=== PATIENT | female | born 2005 | race Caucasian/White ===

== ENCOUNTER 2025-01-10 02:52 | Emergency (ER) | payer BC, SELFPAY ==
[2025-01-10 02:59] VITALS: BP 145/94; PULSE 122; RESP 20; TEMP 36.8; O2SAT 99; BMI 27.8
--- NOTE | 2025-01-10 03:05 | CRLHL7_ITS ---
For Patients: As a result of the Cures Act, medical imaging exams and procedure reports are released immediately into your electronic medical record. You may view this report before your referring provider. If you have questions, please contact your health care provider. Indication: Left-sided chest pain Technique: Two views of the chest Comparison: None Findings/Impression: Asymmetric patchy density in the left lung base, could represent a small or early consolidation. Round density projecting over the anterior midline upper abdomen most likely represents an ingested pills/tablet but can be correlated with history of recent ingestion. Dictated by Armand De La Torre MD @ 01/10/2025 3:23:35 AM (Electronically Signed)
--- NOTE | 2025-01-10 03:06 | ED.CHESTPAIN ---
HPI - Chest Pain General Date Seen: 01/10/25 Chief Complaint: Chest Pain Stated Complaint: Left Chest/Arm Pain, Difficulty breathing Time Seen by Provider: 01/10/25 02:58 Source: patient Mode of arrival: ambulatory Limitations: no limitations History of Present Illness HPI narrative: Patient is a 19-year-old female presenting for left-sided chest pain and some shortness of breath. She states she suffers from anxiety was having anxiety around 22:30. She is not getting better so she decided to take a we gumming which did not seem to help either. She was been trying go to bed without any improvement in her symptoms then she started having left shoulder pain. She states it is a discomfort in her shoulder that she can not really describe it seems to go into her left upper chest. Does not have any changes in symptoms with deep breaths. Has not had symptoms like this before. Denies any history of blood clots, recent travel, hormone use, lower extremity swelling, hemoptysis. No family history of sudden in a young age. Does admit to feeling very anxious right now and does admit that this could be a panic attack. She is prone to panic attack she states. Has not had any fevers, chills, headache, lightheadedness, dizziness, abdominal pain, diarrhea, constipation, weakness, numbness. Related Data Home Medications ?Medication ?Instructions ?Recorded ?Confirmed dexmethylphenidate 10 mg 10 mg PO DAILY 01/10/25 01/10/25 capsule,extended release [id number] dexmethylphenidate 10 mg tablet 10 mg PO DAILY 01/10/25 01/10/25 Allergies Allergy/AdvReac Type Severity Reaction Status Date / Time No Known Drug Allergies Allergy Verified 01/10/25 03:02 Review of Systems Status of ROS Reports: 10 or more systems reviewed and unremarkable except as noted in History and below [facility] Medical History (Updated 01/10/25 @ 03:34 by Jose Amado DO) ADHD ?F90.9 - Attention-deficit hyperactivity disorder, unspecified type (ICD-10) Surgical History No significant past surgical history Social History Smoking Status: Never smoker Second hand tobacco smoke exposure: No How often do you have a drink containing alcohol: never AUDIT-C Alcohol total score: 0 Non-prescribed substance use: denies use Exam Narrative Exam Narrative: Const: Well-nourished, Well-developed, in mild distress, appears very anxious Eyes: PERRL, no conjunctival injection, and symmetrical lids HENT: Atraumatic external nose and ears. Moist mucous membranes. Neck: Symmetric, trachea midline, No thyromegaly. CVS: RRR, No murmurs or gallops. Peripheral pulses 2+ and equal in all extremities RESP: Unlabored respiratory effort. Clear to auscultation bilaterally. GI: Nontender/Nondistended, No rebound or guarding. MSK:Extremities w/o deformity, Normal Active ROM Skin: Warm, Dry. No rashes or lesions. Neuro: Normal Muscle tone, No focal neurological deficits. Psych: Awake, Alert, & Oriented x3. Appropriate mood and affect. Const Vital Signs, click to edit/add: Vital Signs - 24 hr 01/10/25 02:59 01/10/25 03:17 Temperature 98.2 F 98.2 F Pulse Rate 89 Pulse Rate [Right Pulse Oximeter] 122 H Respiratory Rate 20 16 Blood Pressure 130/80 Blood Pressure [Right Upper Arm] 145/94 H Pulse Oximetry 99 98 Oxygen Delivery Method Room Air Course Vital Signs Vital signs: Initial Vital Signs Respiratory Effort Normal, Spontaneous, Non-Labored 01/10/25 02:52 Respiratory Depth Normal 01/10/25 02:52 Respiratory Pattern Normal 01/10/25 02:52 Vital Signs Temperature 98.2 F 01/10/25 02:59 Pulse Rate 122 H 01/10/25 02:59 Respiratory Rate 20 01/10/25 02:59 Blood Pressure 145/94 H 01/10/25 02:59 Pulse Oximetry 99 01/10/25 02:59 Oxygen Delivery Method Room Air 01/10/25 02:59 Temperature 98.2 F 01/10/25 03:17 Pulse Rate 89 01/10/25 03:17 Respiratory Rate 16 01/10/25 03:17 Blood Pressure 130/80 01/10/25 03:17 Pulse Oximetry 98 01/10/25 03:17 Oxygen Delivery Method Room Air 01/10/25 02:59 Medications Administered Medications: Generic Name Dose Route Start Last Admin Trade Name Freq PRN Reason Stop Dose Admin Lorazepam 0.5 mg 01/10/25 03:06 01/10/25 03:10 Lorazepam 0.5 Mg Tablet PO 01/10/25 03:07 0.5 mg ONCE ONE Administration MDM - Chest Pain MDM Narrative Medical decision making narrative: Patient is a 19-year-old female presenting for concerns of chest pain and shortness of breath. Although this does seem like it is mostly is some vague shoulder discomfort. The differential diagnosis of chest pain and shortness of breath is broad and includes common etiologies such as musculoskeletal strain, GERD, pneumonia, etc. More serious etiologies considered include PE, coronary artery disease, pneumothorax, aortic dissection, aortic aneurysm. My concern for PE, aortic dissection, aortic aneurysm is very low. Her symptoms do not seem consistent with those at all. I believe her shortness of breath and chest pain is most likely associated with her anxiety. Will do an EKG and troponin. Will give her some Ativan. She did seem to calm down quite a bit and I told her is very unlikely she is having a heart attack. Chest x-ray ordered of or other abnormalities. EKG and troponin showed no concerning signs. Do not believe repeat troponin is necessary this may concerned for ACS is extremely low. Her heart rate improved significantly after the Ativan. She is still anxious though at this time she states. Does state the Ativan helped a little bit. Chest x-ray showed some patchy density in left lung base that could be a pneumonia but her symptoms in the left upper chest and shoulder in this seems unlikely. There is a dense is a over the midline upper abdomen the radiology thinks represents an ingested pillar template. She did just take some Ativan. Overall at this time I believe she is safe for discharge. Lab Data Labs: Lab Results 01/10/25 Range/Units 03:10 POC Troponin I 0.01 (0.01-0.04) ng/ml Imaging Data Chest x-ray: Attestation: I have reviewed the pertinent imaging results. Radiologist's impression: Asymmetric patchy density in the left lung base, could represent a small or early consolidation. Round density projecting over the anterior midline upper abdomen most likely represents an ingested pills/tablet but can be correlated with history of recent ingestion. Dictated by Armand De La Torre MD @ 01/10/2025 3:23:35 AM ECG Data Attestation: I personally reviewed and interpreted this ECG as follows: Prior ECG tracings: not available for review Interpretation: Sinus tachycardia with a rate 118 beats per minute, normal intervals, normal axis, no ST or T-wave abnormalities. Discharge Plan Discharge Clinical Impression: Atypical chest pain, Anxiety Patient Disposition: Home, Self-Care Condition: Stable Instructions: Noncardiac Chest Pain (ED) Additional Instructions: I do not believe there is any issues with the heart at this time. I do think along the symptoms are related to her anxiety. There was a slight abnormality seen left lower lung base like could possibly be a sign of pneumonia but considering your symptoms are in the upper chest and shoulder this seems unlikely to be pneumonia or the cause of your symptoms. If symptoms do seem to be not improving over the next few days follow-up with the primary care provider or urgent care for re-evaluation. Return to emergency department for new worsening symptoms Prescriptions: No Action No Known Home Medications Follow Up/Referrals: Provider,Not a Local [Primary Care Provider] - Stand Alone Forms: [employer] Info Instructions
[2025-01-10] MEDS: LORazepam 0.5 MG TABLET PO (03:10)
--- OUTSIDE RECORDS SUMMARY | 2025-01-10 03:14 | XMS_ITS | Clinical Summary ---
Author Organization [facility] [facility] Address [address] [place] [id number] Care Team Providers Care Sign Painter Helper Name Role Phone Vincent Talavera MD Primary Care Provider [phone] Allergies Active Allergy Reactions Criticality Noted Date Comments Tree Nut Anaphylaxis 07/29/2014 Cashews Peanut Anaphylaxis 06/10/2005 Shellfish Containing Products 2007 Medications ALBUTEROL SULFATE HFA 90 MCG/ACTUATION AEROSOL INHALER 2 inhalations every 4 hours PRN cough or wheeze 2 0 9 Active tacrolimus 0.03% (PROTOPIC) 0.03 % ointment Apply topically to affected area(s) 2 times daily. 1 Tube 0 0 Active EPINEPHrine (EPIPEN JR) 0.15 mg/0.3 mL injectionIndic ations:Allergy to peanuts Inject 0.15 mg intramuscular one time if needed for Allergic Reaction. Please distribute 2 at a time 0.3 mL 0 2 Active albuterol HFA (PROAIR HFA) 90 mcg/actuation inhaler Inhale 2 Puffs by mouth every 4 hours if needed for Wheezing (cough). One for school and one for home 2 Inhaler 0 4 Active beclomethasone , 80 mcg each actuation, (QVAR) 80 mcg/actuation inhaler Inhale 2 Puffs by mouth 2 times daily. 1 Inhaler 2 4 Active EPINEPHrine (EPIPEN 2-MICHELLE) 0.3 mg/0.3 mL (1:1,000) injection Inject 0.3 mg intramuscular one time if needed for Allergic Reaction. One foe school and one for home 2 Each 0 4 Active fluticasone (50 mcg per actuation) nasal solution (FLONASE)Indic ations:Acute non-recurrent maxillary sinusitis Inhale 2 Sprays to both nostrils once daily. 16 g 4 Active Active Problems Problem Noted Date Diagnosed Date Contact dermatitis and other eczema, due to unspecified cause 02/04/2012 Mild intermittent asthma 04/09/2009 Allergy to peanuts 05/20/2005 Immunizations Immunization Administration Dates Next Due AMB Influenza, IIV3 (Age >=3 years)(Flu Clinic Only) 07/25/2008 AMB Influenza, IIV4 PF (=>6 mos Flulaval,Fluzone Fluarix)(Flu Clinic Only) 07/18/2014,06/19/2013 DTaP 05/20/2005 [id number] (Pediarix) 2004,2004,0 2004 DTaP-IPV (Kinrix) 02/14/2009 HIB PRP-OMP (PedvaxHIB) 05/20/2005,2004, Hepatitis A (Peds) 02/11/2011,03/11/2010 Influenza, IIV3 (Age 6-35 mos) 08/11/2006,2004,2004 Influenza, IIV3 (Age >=3 years) 07/18/2007 MMR 02/14/2009,02/12/2005 Pneumococcal conj 7-Valent ( Prevnar 7) 05/20/2005,2004,2004,2003 Varicella Vaccine 02/14/2009,02/12/2005 Family History Medical History Relation Name Comments Diabetes Other GRANDPARENT Relation Name Status Comments Father Stephon Mother Liseth Other Sister 1 Charlene Sister 2 Fanny Social History Tobacco Use Types Packs/Day Years Used Date Smoking Tobacco: Never Alcohol Use Standard Drinks/Week Comments Not Asked 0 (1 standard drink = 0.6 oz pur e alcohol) Comments Unknown Sex and Gender Information Value Date Recorded Sex Assigned at Not on file 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 Gender Identity Not on file Sexual Orientation Not on file Obstetrics History Last Filed Vital Signs Vital Sign Reading Time Taken Comments Blood Pressure 118/77 03/13/2024 6:02 PM CDT Pulse 106 03/13/2024 6:02 PM CDT Temperature 36.2 C (97.1 F) 03/13/2024 6:02 PM CDT Respiratory Rate 20 03/13/2024 6:02 PM CDT Oxygen Saturation 97% 03/13/2024 6:02 PM CDT Inhaled Oxygen Concentration - - Weight 65.8 kg (145 lb) 03/13/2024 6:02 PM CDT Height 152.4 cm (5') 03/13/2024 6:02 PM CDT Body Mass Index 28.32 03/13/2024 6:02 PM CDT Plan of Treatment Health Maintenance Due Date Last Done Comments Tdap 02/07/2015 Well Child Check for age 3-20 03/20/2015 03/20/2014, 02/23/2013, 02/04/2012, Additional history exists Depression screening for age 12+ 2016 HIV for age 15-65 02/07/2019 HPV series for age 9-26 (1 - 3-dose series) 02/07/2019 BMI (ht and wt on same day) for age 18+ 02/07/2022 Hepatitis C screening for age 18-79 02/07/2022 Tetanus booster 2024 COVID-19 vaccine series ( season) 2024 06/25/2022, 10/08/2021, 01/08/2021, Additional history exists Influenza Vaccine (Season Ended) 2025 07/18/2014, 06/19/2013, 07/25/2008, Additional history exists Pneumococcal series for age 6-49 Aged Out 05/20/2005, 2004, 2004, Additional history exists No longer eligible based on patient's age to complete this topic Meningococcal series for age 11-21 Aged Out No longer eligible based on patient's age to complete this topic Insurance [place] [id number] [employer] Care Teams Sign Painter Helper Relationship Specialty Start Date End Date Vincent Talavera MD PCP - General Pediatric 03/13/24
--- OUTSIDE RECORDS SUMMARY | 2025-01-10 03:14 | XMS_ITS | Patient Health Record ---
Author Organization [facility] Address [address] [place] [address] Care Team Providers Care Quarter Folder Name Role Phone Vincent Talavera Primary Care Provider Shannan Melara [phone] Allergies Allergen (clinical drug ingredient) Drug/Non Drug Allergy documented on EMR Reaction Allergy Type Onset Date Status peanut allergenic extract Peanut (Diagnostic) Unknown Drug Allergy Active Shellfish (FN) Shellfish-derived Products Unknown Drug Allergy Active Reason For Referral No Information Medications Medication SIG (Take, Route, Frequency, Duration) Notes Start Date End Date Status Dexmethylphenidate HCl 10 MG 1 tablet Orally Twice a day Active Cytotec 200 MCG 2 tablets night before appt, two tabs morning of appt. Orally twice for 2 days 04/30/2022 Not-Taking Valium 2 MG 1 tablet as needed Orally Once a day 04/30/2022 Not-Taking Liletta (52 MG) 20.1 MCG/DAY as directed Intrauterine Removed 01/13/2023 Not-Taking Social History Tobacco Use: Social History Observation Description Date Details (start date - stop date) Never Smoker NA - NA Tobacco Use/Smoking Question Answer Notes Are you a nonsmoker Alcohol Screen (Audit-C) Question Answer Notes Did you have a drink containing alcohol in the p ast year? Yes Points 0 Interpretation Negative Plan Of Treatment Pending Test Test Name Order Date Test, Urine 05/07/2022 Insurance Providers Payer Name Payer Address Payer Phone Subscriber Number Group Number Insured Name Patient Relationship to Insured Coverage Start Date Coverage End Date [employer] - (Client Bill) [address] [place], [place] [phone] [id number] Corinna Rose Self - patient is the insured Medical (General) History Medical History History ICD Code Depression\Anxiety asthma Pneumonia
[2025-01-10 03:17] VITALS: BP 130/80; PULSE 89; RESP 16; TEMP 36.8; O2SAT 98
[2025-01-10 03:23] LABS: Troponin, Point-of-Care* 0.01 ng/ml (0.01-0.04)
[2025-01-10 03:31] VITALS: BP 128/78; PULSE 85; RESP 16; TEMP 36.8; O2SAT 98
[2025-01-10 03:54] VITALS: BP 128/78; PULSE 85; RESP 16; TEMP 36.8
== END 2025-01-10 03:58 | disposition home or self-care (01) ==
PROVIDERS: Emergency Provider Student in an Organized Health Care Education/Training Program
DX: R07.89 Other chest pain (principal); F41.9 Anxiety disorder, unspecified
CPT/HCPCS: 71046; 84484; 93005; 99284; 99285; A9270